=== PATIENT | male | born 2000 | race Caucasian/White ===

== ENCOUNTER 2023-02-04 12:57 | Emergency (ER) | payer OTHER ==
[~2023-02-04] VITALS: Ht 175.3 cm; Wt 74.0 kg
[2023-02-04] MEDS ORDERED: LIDOCAINE 4% CREAM 5GM (LMX4) TOP ONE (17:25)
[2023-02-04] MEDS ORDERED: KETOROLAC 60MG 2ML VIAL IM ONE (17:25)
[2023-02-04 18:17] VITALS: BP 127/60; TEMP 97.4; O2SAT 98
== END 2023-02-04 18:45 | disposition home or self-care (01) ==
LOC: M ED 12:57
DX: S89.92XA Unspecified injury of left lower leg, initial encounter (principal); M25.562 Pain in left knee; Y99.0 Civilian activity done for income or pay; X58.XXXA Exposure to other specified factors, initial encounter
CPT/HCPCS: 73564; 73700; 96372; 99284; J1885